=== PATIENT | female | born 1945 | race Caucasian/White ===

== ENCOUNTER → 2017-03-10 | Outpatient (CLI) | payer OTHER, MEDICARE | LOC: FIMAGING 14:47 | DX: Z12.31 Encounter for screening mammogram for malignant neoplasm of breast (principal); Z80.3 Family history of malignant neoplasm of breast | CPT/HCPCS: G0202 ==

== ENCOUNTER → 2017-08-25 | Outpatient (CLI) | payer OTHER, MEDICARE | LOC: FIMAGING 09:16 | PROVIDERS: ATTEND Urology | DX: N30.20 Other chronic cystitis without hematuria (principal) ==

== ENCOUNTER → 2018-03-16 | Outpatient (CLI) | payer OTHER, MEDICARE | LOC: FIMAGING 08:09 | PROVIDERS: ATTEND Family Medicine | DX: Z12.31 Encounter for screening mammogram for malignant neoplasm of breast (principal); Z80.3 Family history of malignant neoplasm of breast ==

== ENCOUNTER → 2018-04-13 | Outpatient (CLI) | payer OTHER, MEDICARE | LOC: FIMAGING 09:50 | PROVIDERS: ATTEND Family Medicine | DX: Z13.820 Encounter for screening for osteoporosis (principal); M85.89 Other specified disorders of bone density and structure, multiple sites; Z78.0 Asymptomatic menopausal state ==

== ENCOUNTER 2019-03-03 10:23 | Day surgery (SDC) | payer OTHER, MEDICARE ==
[2019-03-03] MEDS ORDERED: LR 1,000 ML IV ONE (10:46)
[2019-03-03] MEDS ORDERED: MIDAZOLAM 2 MG/2 ML VIAL ONE (11:47)
[2019-03-03] MEDS ORDERED: fentaNYL 100 MCG/2 ML INJ ONE (11:48)
--- NOTE | 2019-03-03 12:08 | PDPROPOC ---
Sedation Plan of Care Sedation Plan of Care: vital signs stable, mental status noted, patient educated of risks, benefits, alternatives, patient can tolerate sedation ASA Classification: ASA 2 Planned drugs: fentanyl, midazolam Mallampati Score: Class 2 Mallampati Reference Image: Patient passed 3-3-2 rule?: Yes
--- NOTE | 2019-03-03 12:12 | PDGENHP ---
History & Physical Chief Complaint: phx polyps History of Present Illness: phx polyps. hypothyroid Pertinent Past, Social, Family History: hypothyroidism. fhx - no cc or polyps. tobacco - none. alcohol - daily Relevant Physical Exam: A+Ox3. CTA. S1S2. +Bs soft nt Cardiorespiratory Assessment: class ii
--- NOTE | 2019-03-03 13:03 | GIREPORT ---
[facility] - Endoscopy Department Patient Name: Marily Asencio Procedure Date: 03/03/2019 11:07 AM Patient Type: Outpatient Attending MD/ ER Physician: Wilfred Kerr MD Procedure: Colonoscopy Indications: High risk colon cancer surveillance: Personal history of colonic polyps - on last colon pathology from previous polypectomy site showed adenoma in 1 of the biopsy Providers: Wilfred Kerr MD Referring MD: Lisette Jeffery MD Medicines: Fentanyl 100 micrograms IV, Midazolam 4 mg IV Complications: No immediate complications. Estimated blood loss: Minimal. Description of Procedure: After obtaining informed consent, the scope was passed under direct vis ion. Throughout the procedure, the patient's blood pressure, pulse, and oxyg en saturations were monitored continuously. The Colonoscope with irrigatio n channel was introduced through the anus and advanced to the cecum, identified by the appendiceal orifice, ileocecal valve and palpation. T he colonoscopy was performed without difficulty. The patient tolerated the procedure well. The quality of the bowel preparation was excellent. Moderate Sedation: Moderate (conscious) sedation was administered by the endoscopy nurse antonio gaona supervised by the endoscopist. The following parameters were monitored: oxygen saturation, heart rate, blood pressure, and response to care. To fitz physician intraservice time was 30 minutes. Findings: The digital rectal exam was normal. A 3 mm polyp was found in the ascending colon. The polyp was sessile. T he polyp was removed with a cold biopsy forceps. Resection was complete, b ut the polyp tissue was not retrieved. Estimated blood loss was minimal. A 2 mm polyp was found in the ascending colon. The polyp was sessile. T he polyp was removed with a cold biopsy forceps. Resection and retrieval w ere complete. Estimated blood loss was minimal. A 3 mm polyp was found in the proximal transverse colon. The polyp was sessile. The polyp was removed with a piecemeal technique using a cold biopsy forceps. Resection and retrieval were complete. Estimated blood loss was minimal. A post polypectomy scar was found in the proximal transverse colon. The scar tissue was healthy in appearance. There was no evidence of the previous polyp. This was biopsied with a cold forceps for histology. Estimated b lood loss was minimal. Fulguration to ablate the lesion by argon plasma at 0 .5 liters/minute and 20 toth was successful. Estimated blood loss: none. This was the area of previous polypectomy where she had one bx showing adenomatous tissue last year - it looked the same last year yet had adenomatous tissue, therefore I ablated this area with APC The exam was otherwise without abnormality. Estimated Blood Loss: Estimated blood loss was minimal. Post Op Diagnosis: - One 3 mm polyp in the ascending colon, removed with a cold biopsy for ceps. Complete resection. Polyp tissue not retrieved. - One 2 mm polyp in the ascending colon, removed with a cold biopsy for ceps. Resected and retrieved. - One 3 mm polyp in the proximal transverse colon, removed piecemeal us ing a cold biopsy forceps. Resected and retrieved. - Post-polypectomy scar in the proximal transverse colon. Biopsied. Bubba ated with argon plasma coagulation (APC). - The examination was otherwise normal. Recommendation: - Await pathology results. - My office will call with the pathology result with 5-7 days. If you h ave not heard from my office by 12-14, do not assume the pathology is ben l, please call [phone] to get the pathology results. - Repeat colonoscopy in 3 years for surveillance based on pathology res ults. - Avoid Aspirin and NSAIDs for 7-10 days except as used for cardiac or stroke prevention. - High fiber diet. - Patient has a contact number available for emergencies. The signs and symptoms of potential delayed complications were discussed with the pat ient. Return to normal activities tomorrow. Written discharge instructions we re provided to the patient. - Continue present medications. - Discharge patient to home (ambulatory). - Return to primary care physician as previously scheduled. - Thank you for allowing me to help in your patient's care. Do not hesi ragland to call with any questions. Attending Participation: I personally performed the entire procedure. Usha Escoto M.D Wilfred Kerr MD 03/03/2019 1:02:37 PM This report has been signed electronicallyMattbecca Kerr MD Number of Addenda: 0 Note Initiated On: 03/03/2019 11:07 AM Total Procedure Duration Time 0 hours 22 minutes 54 seconds [email or web address]
[2019-03-03] MEDS ORDERED: fentaNYL 100 MCG/2 ML INJ IVP ONE (13:04)
[2019-03-03] MEDS ORDERED: MIDAZOLAM 2 MG/2 ML VIAL IVP ONE (13:04)
[2019-03-03 14:45] VITALS: BP 112/67
== END 2019-03-03 14:39 | disposition home or self-care (01) ==
LOC: FSGY 10:23
PROVIDERS: ATTEND Internal Medicine Gastroenterology
DX: Z12.11 Encounter for screening for malignant neoplasm of colon (principal); Z86.010 Personal history of colon polyps; E03.9 Hypothyroidism, unspecified; B00.9 Herpesviral infection, unspecified; J45.30 Mild persistent asthma, uncomplicated; D12.3 Benign neoplasm of transverse colon; D12.2 Benign neoplasm of ascending colon
CPT/HCPCS: J2250; J3010